=== PATIENT | female | born 1990 | race Caucasian/White ===

== ENCOUNTER → 2024-10-14 10:00 | Outpatient (BNV) | payer OTHER, SELFPAY | PROVIDERS: Visit Provider Psychiatry & Neurology Psychiatry | DX: F39 Unspecified mood [affective] disorder (principal); F43.10 Post-traumatic stress disorder, unspecified; F19.90 Other psychoactive substance use, unspecified, uncomplicated | CPT/HCPCS: 90792; 99214 ==

== ENCOUNTER 2024-10-27 08:11 | Outpatient (REF) | payer OTHER, SELFPAY ==
[2024-10-27 08:54] LABS: MANUAL DIFF FLAG NO
[2024-10-27 09:12] LABS: Basophils Absolute Auto 0.1 X10*3/uL (0.0-0.2); Basophils Percent Auto 0.8 % (0-2); Eosinophils Absolute Auto 0.1 X10*3/uL (0.0-0.4); Eosinophils Percent Auto 1.2 % (0-4); Hematocrit 41.4 % (37.0-47.0); Hemoglobin 14.8 g/dl (12.0-16.0); Imm Gran Abs Auto 0.04 X10*3/uL (0.00-0.03); Imm Gran Pct Auto 0.5 % (0.0-0.4); Lymphocytes Percent Auto 26.9 % (20-40); Mean Corpuscular HGB Conc 35.7 g/dl (31.0-35.0); Mean Corpuscular Hemoglobin 32.5 pg (27.0-33.0); Mean Platelet Volume 8.6 fL (9.4-12.3); Monocytes Absolute Auto 0.5 X10*3/uL (0.1-1.2); Monocytes Percent Auto 6.7 % (2-11); Neutrophils Absolute Auto 4.8 x10*3/uL (2.0-8.3); Neutrophils Percent Auto 63.9 % (45-73); Platelet Count 273 X10*3/uL (160-400); Red Blood Count 4.55 X10*6/uL (4.20-5.50); Red Cell Distribution Width 11.9 % (11.0-16.0); White Blood Count 7.6 X10*3/uL (4.8-10.8)
[2024-10-27 09:37] LABS: Estimated Average Glucose 94 mg/dL; Hemoglobin A1C 111.1269 umol/L; Hemoglobin A1c % 4.9 % (<6.0); Total Hemoglobin (HGBA1C) 3720.7095 umol/L
[2024-10-27 09:50] LABS: Erythrocyte Sedimentation Rate 3 MM/HR (0-20)
[2024-10-27 10:21] LABS: Vitamin B12 285 pg/mL (200-900)
[2024-10-27 11:42] LABS: Alanine Aminotransferase 27 U/L (0-31); Albumin Level 4.1 g/dL (3.5-5.0); Alkaline Phosphatase 83 U/L (39-117); Anion Gap 14 (12-20); Aspartate Amino Transferase 24 U/L (5-31); Bilirubin Total 0.6 mg/dL (0.0-1.0); Blood Urea Nitrogen 12 mg/dL (9-16); C Reactive Protein 0.66 mg/dL (< or = 0.50); Calcium 9.1 mg/dL (8.4-10.2); Carbon Dioxide 23 mmol/L (22-29); Chloride 107 mmol/L (96-108); Cholesterol 250 mg/dL (<200); Estimated Glomerular Filt Rate > 60; Glucose Fasting 86 mg/dL (60-99); HDL Cholesterol 45 mg/dL (>40); Iron 122 mcg/dL (30-160); Magnesium 2.1 mg/dL (1.6-2.6); Percent Iron Saturation 41 % (15-50); Phosphorus 2.8 mg/dL (2.7-4.5); Potassium 4.1 mmol/L (3.3-5.1); Sodium 140 mmol/L (135-145); Total Iron Binding Capacity 297 mcg/dL (228-428); Total Protein 6.7 g/dL (6.5-8.0); Triglycerides 410 mg/dL (<150); Unsaturated Iron Binding 175 ug/dL
[2024-10-27 11:53] LABS: Ferritin 75 ng/mL (10-122); Free T4 (Free Thyroxine) 0.86 ng/dL (0.71-1.85); Thyroid Stimulating Hormone 0.85 uIU/mL (0.32-4.0); Vitamin D 25-OH Total 27.4 ng/mL (>30)
[2024-10-27 12:16] LABS: Gamma Glutamyl Transpeptidase 21 U/L (7-33)
--- OUTSIDE RECORDS SUMMARY | 2024-10-28 18:45 | XMS_ITS | Continuity of Care Document ---
Author Organization [facility] Address [address] [place] [address] [address] [place] [address] Phone Care Team Providers Care Scruff Worker Name Role Phone Ebenezer RIOS FACS RVT Clive SILVER Unavailable Unavailable Allergies, Adverse Reactions, Alerts Substance Reaction Status Criticality No Known Allergies Active No Inform ation Medications Medication Instructions Dosage Effective Dates (start - stop) Status Comments fluoxetine 20 mg capsule - A ctive Procedures Procedure Date Office/Outpt E&M Established 15 Mins Feb No Charge For Services Duplex Scan-extrem Veins; Uni/ PT Did Not Receive Services Phleb Veins - Extrem - To 20 Inj Scleros Solut; Mx Veins 1 3 Endovenous Laser, 1st Vein Endovenous Laser, 1st Vein Endovenous laser vein addon Advance Directives Directive Yes / No Effective Date File Name No Information Encounters Encounter Description Practice Location Reason(s) For Visit Diagnoses Date Provider Providers Copied on Encounter Office/Outpt E&M Established 15 Mins [facility], [address] [place] [address] [address], [id number], [place] tel:[phone] CVR - [place] - [place] Venous insufficiency (chronic) (peripheral) 3 Ebenezer IROS FACS RVT NADEEM Manriquez. [address] [facility] [address], [facility] [address], [place]. tel:[phone] Referring Provider: Clive Sol MD FACS RVT RP, [address] [facility] [address], [place], [address]. tel:[phone] [facility], [address] [place] [address] [address], [place], [id number], [place] tel:[phone] CVR - [facility] Venous insufficiency (chronic) (peripheral)Nick dy mass index (BMI) 30.0-30.9, adult Jan- 3 Ebenezer RIOS FACS RVT VI Clive Declan. [address] [facility], [address], [place], [address], [place]. tel:[phone] Referring Provider: Clive Sol MD FACS RVT [facility], [address] [place] [address] [address], [place], [address]. tel:[phone] [facility], [address] [place] [address] [address], [place], [id number], [place] tel:[phone] CVR - [facility] Encntr for f/u exam aft trtmt for cond oth than malig neoplmVenous insufficiency (chronic) (peripheral) 3 Ebenezer RIOS FACS RVT VI Clive Declan. [facility], [address], [place], [address], [place]. tel:[phone] Referring Provider: Clive Sol MD, FACS RVT [facility], [address] [place] [address] [address], [place], [address]. tel:[phone] [facility], [address] [place] [place] [address] [address], [place], [id number], [place] tel:[phone] CVR - [place] - [place] No Information 3 Ebenezer RIOS FACS RVT RPVI Clive Manriquez. [address], [address], [place], [address], [place]. tel:[phone] Referring Provider: Clive Sol MD, FACS RVT [facility], [facility] [address], [place], [address]. tel:[phone] [facility], [address] [place] [place] [address] [address], [place], [id number], [place] tel:[phone] CVR - [place] - [place] Varicose veins of right low extrm w oth complications 3 Ebenezer RIOS FACS T RPVI Clive Declan. [address] [facility], [address], [place], [address], [place]. tel:[phone] Referring Provider: Clive Sol MD FACS RVT RP, [facility] [address], [place], [address]. tel:[phone] [facility], [address] [place] [address] [address], [place], [id number], [place] tel:[phone] CVR - [place] - [place] Venous insufficiency (chronic) (peripheral) [address]enezer RIOS FACS T [facility] Clive Declan. [address] [place] [address], [place] [address], [place], [address], [place]. tel:[phone] Referring Provider: Clive Sol MD FACS T [facility], [address] [place] [address] [address] [facility], [place], [address]. tel:[phone] [facility], [address] [place] [address] [address], [place], [id number], [place] tel:[phone] CVR - [place] - [place] Venous insufficiency (chronic) (peripheral) 3 Ebenezer RIOS FACS T VI Clive Manriquez. [facility], [address], [place], [address], [place]. tel:[phone] Referring Provider: Clive Sol MD FACS RVT RP, [address] [place] [address] [address], [place], [address]. tel:[phone] Family History Family Member Type Diagnosis Age At Onset No Information Payers Payer name Insurance type Covered republican ID Authoriza tiannabelle(s) [facility] [id number] Social History Type Description Quantity Date Captured Comments Alcohol Use Details No Caffeine Use Details Unknown Tobacco Use Status Current non-smoker Smoking Status Never smoker Non-Smoking Tobacco Use Details : No Details Available : No Details Available Sex Female Chief Complaint And Reason For Visit No Information Reason For Referral Reason For Referral No Information Plan Of Treatment Date Type Action Status Goal Tobacco cessation counseling completed Goal Diet education completed History Of Present Illness Encounter Date Complaint History Of Prese nt Illness No Information Functional Status Date Functional Assessmen t No Information Instructions Date Instruction Additional Infor mation Diet education Related to Body mass index [BMI] 30.0-30.9, adult Giving Encouragement to Exercise Related to Body mass index [BMI] 30.0-30.9, adult Patient education booklet given Related to Venous Insufficiency (Chronic / Peripheral) Assessments Type Assessment Date assessment Venous insufficiency (chronic) ( peripheral) Patient Care Teams Name Effective Dates (start - stop) Status Members No Information
[2024-11-02 06:14] LABS: Vitamin B1 12 nmol/L (8-30)
[2024-11-03 15:09] LABS: Vitamin B6 8.6 ng/mL (2.1-21.7)
== END 2024-10-27 08:12 | disposition home or self-care (01) ==
LOC: HO.LAB 08:11
PROVIDERS: PCP Family Medicine; Visit Provider Psychiatry & Neurology Psychiatry
DX: F39 Unspecified mood [affective] disorder (principal); F43.10 Post-traumatic stress disorder, unspecified; F50.9 Eating disorder, unspecified; Z13.1 Encounter for screening for diabetes mellitus
CPT/HCPCS: 36415; 80053; 80061; 82306; 82607; 82728; 82746; 82977; 83036; 83090; 83540; 83735; 83970; 84100; 84207; 84425; 84439; 84443; 85025; 85652; 86140

== ENCOUNTER 2024-11-12 08:15 | Outpatient (RCR) | payer OTHER, SELFPAY ==
[2024-10-13 13:03] VITALS: BMI 37.4
[2024-10-13 13:04] VITALS: BP 124/74; PULSE 76; TEMP 36.9
--- NOTE | 2024-10-13 14:23 | PC.ADMIT ---
Patient is a 34 year old female who was referred to PHP by her PCP secondary to increased depression with SI. Patient reports she has been depressed since her 20's. Patient reports she was feeling overwhelmed with work, having marital issues, and dealing with untreated trauma. See Integrative Assessment for more information. Patient is currently taking a leave of absence from work. Approved until December 2024. Patient stated, So I can focus on my mental health. Patient reports that work is a big stressor as she does not feel supported at work. Patient currently alert and oriented x4. Calm and cooperative. Thoughts are clear and logical. She presented with depressed mood and anxious affect. Denied SI. Patient stated, A couple weeks ago I was not so safe I was very escalated more thoughts and down in the dumps and not motivated. I now feel more hopeful, I'm still guarded a little bit but this is something completely different than I ever done. I'm more optimistic about this . Patient stated she talked to her friends about the incident that happened 3 weeks ago. Stated she can reach out to her friends if needed and has the crisis numbers to call if needed. Patient was given a copy of her safety plan if needed. Patient reports her friends are supportive. She stated she would like a therapist as well. Medications reconciled with patient and patient's pharmacy. Patient reports she is taking medications as prescribed.
--- NOTE | 2024-10-14 15:26 | HO.PHP ---
Client's case has been opened and reviewed in team
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
--- NOTE | 2024-10-23 22:45 | HO.PHPPROGNO ---
Subjective Subjective Date of Service: 10/23/24 Reason For Visit: MDD Interim History: Patient reports I had a good week. Things are much better so far . Started on Abilify 1 mg a week ago and has been at whole 2 mg tablet for past 5 days. Denies any AE. Alicia been more active this week....I definitely notice a shift in my thinking. More positive. She reports a decrease in hopelessness or SI thoughts. I can say I definitely am not noticing any suicidal thoughts . Anxiety occurs every once in a while, She reports an improvement in cognitive anxiety (wonders if this can be attributed to the medication). She notices more somatic anxiety, attributes some of this uptick as to being more active putting myself out there . Somatic anxiety at a 6/10 in severity. Sleep intact. We agree to return to discussion next week, consider whether prazosin or guanfacine may be helpful to try out on a prn basis. Medication Compliance: Yes Side effects from medications: No Attending Groups: Yes Review of Systems Acute medical concerns: No Mental Status Exam Mental Status Exam Narrative: Alert, oriented, in no acute distress. Mood less depressed, anxious; affect variable, no lability. Speech normal, soft, flat without slowing. Thought process linear, coherent. Thought content related to stressors, denies SI or any current thoughts, intention or urge to harm self. Denies any aggressive ideation or HI. No paranoia or delusional content elicited. Insight and judgment fair to good. Diagnostics Vital Signs (24Hr): BMI result Body Mass Index 37.4 Assessment & Plan Assessment & Plan (1) Mood disorder: Status: Acute Code(s): F39 - Unspecified mood [affective] disorder Assessment and Plan: Hx of MDD, mood cycling, PMS, seasonal affective-type of depressive exacberations (2) Post traumatic stress disorder: Status: Acute Code(s): F43.10 - Post-traumatic stress disorder, unspecified (3) Polysubstance use disorder: Status: Acute Code(s): F19.90 - Other psychoactive substance use, unspecified, uncomplicated Assessment and Plan: regular use of alcohol, cannabis use on a weekly basis sporadic cocaine and hallucingen use Plan Admit to [facility] VS reviewed: bronwyn, BP 124/74;?76 bpm start aripiprazole 1-2 mg qd continue other regular medications?- escitalopram 10 mg qd Routine lab work ordered as indicated EKG, routine for baseline QTc for medication considerations as indicated UDS as indicated MassPat reviewed Continue to monitor as per protocol Patient educated on: diagnosis, medication risk/benefits and substance abuse Informed Consent: understands Reason for contiued partial hosp. stay Substantial Risk for: inability to function and med/psych decompensation Certification I certify that partial hospital treatment is medically necessary due to the symptoms and problems resulting from the patient's mental illness and the failure to treat the patient at the partial hospital level of care would likely result in the patient requiring inpatient psychiatric care which could not be prevented at a less intensive level of care. Total time managing care of this patient today __30__ minutes. Discharge Plan Discharge Attending provider: Lorenza Gaming Medications: New aripiprazole 2 mg tablet 2 mg PO BEDTIME Qty: 14 0RF Continued escitalopram oxalate 10 mg tablet 10 mg PO DAILY Rx Instructions: Last filled 09/26/24 #30. Stand Alone Forms: Patient Portal Discharge page Print Language: Estonian Telehealth Telehealth Telehealth Platform: Telephone
--- NOTE | 2024-10-27 08:09 | HO.PHP ---
Sandra's new OP therapy and Med provider appts are as follows: OP Therapy Intake with [facility], [address] [facility], on November 02 at 11 am in person with Rosaline Potter. OP Med Provider appt, [facility], on November 30 at 9 am, in person.
--- NOTE | 2024-10-28 16:08 | HO.PHP ---
Sandra [facility] 10/27/24, a voicemail was left requesting a concurrent review and 3 to 5 more days. Jaclyn at [facility] has not called back. Sandra is currently out of covered days so has been instructed to take tomorrow off (10/29/24) while we await Insurance review for more authorized days. Sandra is safe and will resume programming of Saturday pending approval.
--- NOTE | 2024-10-29 16:53 | HO.PHP ---
[facility] called with additional 5 days for Sandra. Pt has been approved until 10/28/24 to 11/03/24.
--- NOTE | 2024-10-30 19:55 | P.PNPSP_ITS ---
Subjective Subjective Date of Service: 10/30/24 Reason For Visit: MDD Interim History: Has started on ABilify, is well-tolerated so far at 2 mg. She feels there has been some noticable improvements. Mood is starting to become more stable, she is surprised she has not been having any passive SI although still occasionally dealing with other anxious and obsessive thougths. I'm about residential there and is open to an increase in Abilify. Reports mood stability currently at a 6out of 10, up from a 2 out of 10 in severity. She took her last tablet yesterday but didnt get to flower buncher or picker new script so she went without taking the ABilify last night, and does notice she is a but more irritable today. She continues to wake early and unable to stay asleep, usually waking up around 2am. Still having a lot of problems with anxiety throughout the day and shares various worries she has in regards to her anxiety. Also complains of low energy, lack of motivation which have not improved. Has a slump in the afternoon which leaves her vulnerable to more depressive thoughts and overthinking, cat asrophizing, etc. Currently denies any urges or wishes to harm self. Denies any recent substance use. Medication Compliance: Yes Side effects from medications: No Attending Groups: Yes Review of Systems Acute medical concerns: No Mental Status Exam Mental Status Exam Narrative: Alert, oriented, in no acute distress. Mood less depressed, anxious; affect variable, no lability. Speech normal, soft, flat without slowing. Thought process linear, coherent. Thought content related to stressors, denies SI or any current thoughts, intention or urge to harm self. Denies any aggressive ideation or HI. No paranoia or delusional content elicited. Insight and judgment fair to good. Diagnostics Vital Signs (24Hr): BMI result Body Mass Index 37.4 Assessment & Plan Assessment & Plan (1) Mood disorder: Status: Acute Code(s): F39 - Unspecified mood [affective] disorder Assessment and Plan: Hx of MDD, mood cycling, PMS, seasonal affective-type of depressive exacberations (2) Post traumatic stress disorder: Status: Acute Code(s): F43.10 - Post-traumatic stress disorder, unspecified Assessment and Plan: r/o Persistent developmental disorder/ASD (3) Polysubstance use disorder: Status: Acute Code(s): F19.90 - Other psychoactive substance use, unspecified, uncomplicated Assessment and Plan: regular use of alcohol, cannabis use on a weekly basis sporadic cocaine and hallucingen use Plan continue in PHP, advocating for an extension take 2 mg tongiht and then increase aripiprazole to 3.5 mg qd (1/2 tablet 2 mg + 1/2 tablet 5 mg) start guanfacine ER 1 mg in AM (will order but hold off starting script for [facility] 2.5-5 mg tabs) continue escitalopram 10 mg qd start vitamin D3 5000 IU qd start thiamine 100 mg qd Routine lab work reviewed: vit D 27.4; B12 285 EKG, routine for baseline QTc for medication considerations as indicated UDS as indicated VS: BP 124/74;?76 bpm (10/13) Continue to monitor Patient educated on: diagnosis, medication risk/benefits and substance abuse Informed Consent: understands Reason for contiued partial hosp. stay Substantial Risk for: inability to function, rapid decompensation and med/psych decompensation Certification I certify that partial hospital treatment is medically necessary due to the symptoms and problems resulting from the patient's mental illness and the failure to treat the patient at the partial hospital level of care would likely result in the patient requiring inpatient psychiatric care which could not be prevented at a less intensive level of care. Total time managing care of this patient today _30___ minutes. Discharge Plan Discharge Attending provider: Lorenza Gaming Medications: New aripiprazole 5 mg tablet 5 mg PO BEDTIME Qty: 14 0RF guanfacine 1 mg tablet extended release 24 hr 1 mg PO DAILY Qty: 14 0RF methylphenidate HCl 5 mg tablet 5 mg PO BID Qty: 20 0RF Rx Instructions: Partial Fill upon patient request. cholecalciferol (vitamin D3) [Vitamin D3] 125 mcg (5,000 unit) tablet 125 mcg PO DAILY Qty: 30 1RF mecobalamin (vitamin B12) [B12 Active] 1,000 mcg tablet,chewable 1,000 mcg PO DAILY Qty: 30 1RF Continued escitalopram oxalate 10 mg tablet 10 mg PO DAILY Rx Instructions: Last filled 09/26/24 #30. aripiprazole 2 mg tablet 2 mg PO BEDTIME Qty: 30 0RF Stand Alone Forms: Patient Portal Discharge page Print Language: Polish
--- NOTE | 2024-11-09 13:30 | P.PNPSP_ITS ---
Subjective Subjective Date of Service: 11/09/24 Reason For Visit: MDD Interim History: Patient seen for follow-up. Sleep has been fine, getting a full 8 hrs. Appetite fine. Is tolerating ABilify, currently at 2 mg. I still have a lot of address Thus far she is tolerating medication, no change. She denies any side effects. Will continue to titrate. Denies any SI, HI, AH, VH. Medication Compliance: Yes Side effects from medications: No Attending Groups: Yes Mental Status Exam Mental Status Exam Narrative: Alert, oriented, in no acute distress. Mood less depressed, anxious; affect variable, no lability. Speech normal, soft, flat without slowing. Thought process linear, coherent. Thought content related to stressors, denies SI or any current thoughts, intention or urge to harm self. Denies any aggressive ideation or HI. No paranoia or delusional content elicited. Insight and judgment fair to good. Diagnostics Vital Signs (24Hr): BMI result Body Mass Index 37.4 Assessment & Plan Assessment & Plan (1) Mood disorder: Status: Acute Code(s): F39 - Unspecified mood [affective] disorder Assessment and Plan: Hx of MDD, mood cycling, PMS, seasonal affective-type of depressive exacberations (2) Post traumatic stress disorder: Status: Acute Code(s): F43.10 - Post-traumatic stress disorder, unspecified Assessment and Plan: r/o Persistent developmental disorder/ASD (3) Polysubstance use disorder: Status: Acute Code(s): F19.90 - Other psychoactive substance use, unspecified, uncomplicated Assessment and Plan: regular use of alcohol, cannabis use on a weekly basis sporadic cocaine and hallucingen use Plan increase aripiprazole to 3.5 mg qd continue guanfacine ER 1 mg in AM (will order but hold off starting script for [facility] 2.5-5 mg tabs) continue escitalopram 10 mg qd continue vitamin D3 5000 IU qd continue thiamine 100 mg qd Routine lab work reviewed: vit D 27.4; B12 285 EKG, routine for baseline QTc for medication considerations as indicated UDS as indicated VS: BP 124/74;?76 bpm (10/13) Continue to monitor Patient educated on: diagnosis, medication risk/benefits and substance abuse Informed Consent: understands Reason for contiued partial hosp. stay Substantial Risk for: med/psych decompensation Certification I certify that partial hospital treatment is medically necessary due to the symptoms and problems resulting from the patient's mental illness and the failure to treat the patient at the partial hospital level of care would likely result in the patient requiring inpatient psychiatric care which could not be prevented at a less intensive level of care. Total time managing care of this patient today _30___ minutes. Discharge Plan Discharge Attending provider: Lorenza Gaming Medications: New cholecalciferol (vitamin D3) [Vitamin D3] 125 mcg (5,000 unit) tablet 125 mcg PO DAILY Qty: 30 1RF mecobalamin (vitamin B12) [B12 Active] 1,000 mcg tablet,chewable 1,000 mcg PO DAILY Qty: 30 1RF Continued aripiprazole 2 mg tablet 2 mg PO BEDTIME Qty: 30 0RF guanfacine 1 mg tablet extended release 24 hr 1 mg PO DAILY Qty: 30 0RF aripiprazole 5 mg tablet 5 mg PO BEDTIME Qty: 14 0RF Changed escitalopram oxalate 10 mg tablet 15 mg PO DAILY Qty: 45 0RF Rx Instructions: Last filled 09/26/24 #30. Stand Alone Forms: Patient Portal Discharge page Patient Education: Depression (DC) Print Language: [place]
--- NOTE | 2024-11-12 12:34 | HO.PHPPROGNO ---
Subjective Subjective Date of Service: 11/12/24 Reason For Visit: MDD Interim History: Patient seen for follow-up, anticipating discharge at the end of program today.? Doing good, feeling a lot better . Currently at 3.5 mg of ABilify. Helping a lot with intrusive thoughts. Reports no acute issues or concerns. Medication compliant, medications well-tolerated. Denies any adverse effects.? Mood is stable.? Denies any hopelessness or SI. Denies thoughts of harming self or others at this time. Denies any aggressive ideation or HI. Denies any paranoia or AH or VH. Sleep, appetite, energy stable. Medication Compliance: Yes Side effects from medications: No Attending Groups: Yes Review of Systems Acute medical concerns: No Mental Status Exam Mental Status Exam Narrative: Alert, oriented, in no acute distress. Calm, cooperative. Mood stable, affect appropriate. Speech normal. Thought process linear, coherent, more goal-directed. Thought content related to stressors, future-oriented, denies any helplessness, hopelessness or SI.? No aggressive ideation or HI. No paranoia or delusional content elicited. No evidence of psychosis. Insight and judgment fair-good. Diagnostics Vital Signs (24Hr): BMI result Body Mass Index 37.4 Assessment & Plan Assessment & Plan (1) Mood disorder: Status: Acute Code(s): F39 - Unspecified mood [affective] disorder (2) Post traumatic stress disorder: Status: Acute Code(s): F43.10 - Post-traumatic stress disorder, unspecified (3) Polysubstance use disorder: Status: Acute Code(s): F19.90 - Other psychoactive substance use, unspecified, uncomplicated Plan Discharge from [facility] Continue regular medications Refills sent to pharmacy Will defer further medication management to outpatient provider *Safety plan reviewed *Discharge diagnoses, treatment course, discharge plan have been reviewed with patient (including medication regime, medication management, potential side effects) as well as treatment rationale were also revisited *Discharge paperwork signed and given to patient, copy sent for scanning to chart Patient educated on: diagnosis and medication risk/benefits Informed Consent: understands Reason for contiued partial hosp. stay Substantial Risk for: stable for discharge Certification I certify that partial hospital treatment is medically necessary due to the symptoms and problems resulting from the patient's mental illness and the failure to treat the patient at the partial hospital level of care would likely result in the patient requiring inpatient psychiatric care which could not be prevented at a less intensive level of care. Total time managing care of this patient today __30__ minutes. Discharge Plan Discharge Attending provider: Lorenza Gaming Medications: New cholecalciferol (vitamin D3) [Vitamin D3] 125 mcg (5,000 unit) tablet 125 mcg PO DAILY Qty: 30 1RF mecobalamin (vitamin B12) [B12 Active] 1,000 mcg tablet,chewable 1,000 mcg PO DAILY Qty: 30 1RF Continued aripiprazole 2 mg tablet 2 mg PO BEDTIME Qty: 30 0RF guanfacine 1 mg tablet extended release 24 hr 1 mg PO DAILY Qty: 30 0RF aripiprazole 5 mg tablet 5 mg PO BEDTIME Qty: 14 0RF Changed escitalopram oxalate 10 mg tablet 15 mg PO DAILY Qty: 45 0RF Rx Instructions: Last filled 09/26/24 #30. Stand Alone Forms: Patient Portal Discharge page Patient Education: Depression (DC) Print Language: Kazakh
== END 2024-11-12 23:59 | disposition home or self-care (01) ==
LOC: HO.PHPA 08:15
PROVIDERS: Visit Provider Psychiatry & Neurology Psychiatry
DX: F43.10 Post-traumatic stress disorder, unspecified (principal); F39 Unspecified mood [affective] disorder; F19.90 Other psychoactive substance use, unspecified, uncomplicated; Z79.899 Other long term (current) drug therapy
CPT/HCPCS: 90791; 90853